=== PATIENT | female | born 1990 | race Two or more races ===

== ENCOUNTER 2019-05-22 16:28 | Emergency (ER) | payer SELFPAY ==
[~2019-05-22] VITALS: Ht 152.4 cm; Wt 52.2 kg
[2019-05-22 16:48] VITALS: BP 113/86
== END 2019-05-22 18:28 | disposition home or self-care (01) ==
LOC: ER 16:28
DX: J11.1 Influenza due to unidentified influenza virus with other respiratory manifestations (principal); G43.909 Migraine, unspecified, not intractable, without status migrainosus
CPT/HCPCS: 87070; 87804; 87880; 99283; J7030